=== PATIENT | female | born 1975 | race Caucasian/White ===

== ENCOUNTER 2017-09-14 13:55 | Emergency (ER) | payer OTHER ==
[2017-09-14 14:00] VITALS: TEMP 98.1
[2017-09-14] MEDS ORDERED: NS 1,000 ML IV ONE (14:17)
[2017-09-14] MEDS ORDERED: methylPREDNISolone SOD SUCC 125 MG/2 ML VIAL IVP ONE (14:17)
[2017-09-14] MEDS ORDERED: predniSONE 20 MG TAB PO ONE (14:21)
[2017-09-14] MEDS ORDERED: diphenhydrAMINE 25 MG CAP PO ONE (14:21)
[2017-09-14] MEDS ORDERED: FAMOTIDINE 20 MG TAB PO ONE (14:21)
--- NOTE | 2017-09-14 14:21 | EDPHY ---
HPI/HX/ROS/PE/MDM Narrative: CHIEF COMPLAINT: Allergic reaction HISTORY OF PRESENT ILLNESS: The patient is a 42 y/o female with an extensive history of food allergies arriving for an allergic reaction after a dental procedure. She had an injection of epinephrine and articaine at 12:15 PM, 2 hours ago. She has had this medication before and noticed a slight adverse reaction (felt slightly short of breath with constriction in her throat) which she attributed to other aspects of the previous procedure. As part of the procedure today, she also had topical cleanser and mouth rinse used and an implant placed. During the procedure, she began to feel cold. She then noted a tightening in her throat and back muscles, consistent with her allergic reaction response. She sat in the office for a few minutes and began to experience shakiness. She reports that her prior allergic reactions are often accompanied by an adrenaline surge similar to today, however, usually the episodes pass in 15 minutes. Today her shakiness has been present for greater than an hour. She had associated shortness of breath that resolved prior to her arriving in the ED. She usually uses Benadryl during the episode and denies taking Benadryl today. She denies chest pain or any other associated symptoms. No fever, chest pain, palpitations, vomiting, diarrhea, urinary complaints, headache, lightheadedness. REVIEW OF SYSTEMS: Aside from elements discussed in the HPI, a comprehensive 10-point review of systems was reviewed and is negative. PAST MEDICAL HISTORY: Food allergies, denies a history of any drugs which precipitate allergic reactions. SOCIAL HISTORY: , smoker VITAL SIGNS: Reviewed by me GENERAL: Well-developed, well-nourished, tremulous, stuttering. HEENT: Atraumatic. Eyes: No icterus, no injection. Mouth: moist mucous membranes. NO angioedema of the uvula. No erythema or lesions. Neck: supple with no adenopathy. LUNGS: Clear to auscultation bilaterally, no wheezes, rhonchi or rales. No stridor. CARDIAC: Tachycardic at 140. No rubs, murmurs or gallops. ABDOMEN: Soft, nontender, nondistended, bowel sounds normal. BACK: No CVA tenderness. EXTREMITIES: No trauma. No edema. Range of motion is normal throughout. NEURO: Alert and oriented, grossly nonfocal. SKIN: Warm and dry, no rash. No urticaria. PSYCHIATRIC: Normal mentation, no agitation. ED Course: The patient complains of an allergic reaction. She had a dental procedure two hours ago and began experiencing throat and back tightness and shakiness. She has an extensive history of food allergies and reports this feels similar. Episodes usually resolve after 15 minutes and an hour later it had not improved , prompting her visit. On exam, she has no angioedema, wheezing, stridor, urticaria, or any other signs that she would require epinephrine. Her shakiness improved over the course of my exam. Plan for Benadryl, Pepcid, and prednisone. Unclear if the patient's presentation is secondary to an allergic reaction which occurred today versus side effect of epinephrine which had been used as part of her local anesthetic. Patient is currently greater than 2 hr out from her dental procedure and still presents with significant tachycardia and shaking. There may be a component of adrenaline/anxiety involved. Patient was offered an IV with IV medications. She reports that she is already feeling better after presented to the emergency department. She was given p.o. Benadryl as well as p.o. Prednisone. After further observation in the emergency department patient reports she is feeling well and wishes to be discharged. Patient was advised to continue to take Benadryl as needed - Data Points Medications Given: Discontinued Medications Diphenhydramine HCl (Benadryl) 50 mg PO EDNOW ONE Stop: 09/14/17 14:22 Last Admin: 09/14/17 14:30 Dose: 50 mg Famotidine (Pepcid) 40 mg PO EDNOW ONE Stop: 09/14/17 14:22 Last Admin: 09/14/17 14:30 Dose: 40 mg Prednisone (Prednisone) 60 mg PO EDNOW ONE Stop: 09/14/17 14:22 Last Admin: 09/14/17 14:29 Dose: 60 mg General Time Seen by Provider: 09/14/17 14:02 Initial Vital Signs: Initial Vital Signs Temperature (C) 36.7 C 09/14/17 13:57 Heart Rate 142 H 09/14/17 13:57 Respiratory Rate 18 09/14/17 13:57 Blood Pressure 161/124 H 09/14/17 13:57 O2 Sat (%) 95 09/14/17 13:57 O2 Delivery Mode Room Air Allergies/Adverse Reactions: Opioids-Meperidine and Related Allergy (Verified 09/14/17 13:57) Opioids-Methadone and Related Allergy (Verified 09/14/17 13:57) Home Medications: Medication Instructions Recorded Zyrte 09/14/17 predniSONE [prednisone 10mg (RX)] 40 mg PO DAILY 3 Days tab 09/14/17 Departure - Departure Disposition: Home, Routine, Self-Care Clinical Impression: Allergic reaction Qualifiers: Encounter type: initial encounter Qualified Code(s): T78.40XA - Allergy, unspecified, initial encounter Condition: Good Instructions: General Allergic Reaction (ED) Additional Instructions: 1. Follow-up with your primary care provider or electronics parts sales representative for continued symptoms. 2. Continue to take Benadryl as needed. 3. You been given a prescription for prednisone. Please take this as directed. 4. Return to the emergency department for any difficulty breathing, chest pain, or other worsening of condition. Referrals: Telma Ching DO [Doctor of Osteopathy] - As per Instructions Prescriptions: predniSONE [prednisone 10mg (RX)] 40 mg PO DAILY 3 Days tab Report Scribed for: Lisa Lorenzana Report Scribed by: Michelle Malagon Date of Report: 09/14/17 Time of Report: 14:24 Physician Review and Approval Statement: Portions of this note were transcribed by a medical manager. I personally performed a history, physical exam, medical decision making, and confirmed accuracy of information the transcribed note.
[2017-09-14 15:21] VITALS: BP 112/62; PULSE 65; RESP 16; O2SAT 98
== END 2017-09-14 15:21 | disposition home or self-care (01) ==
DX: T78.40XA Allergy, unspecified, initial encounter (principal); F17.200 Nicotine dependence, unspecified, uncomplicated
CPT/HCPCS: J7512